=== PATIENT | male | born 1940 | race Caucasian/White ===

== ENCOUNTER → 2020-05-20 | Outpatient (CLI) | payer MEDICARE, OTHER ==
[~2020-05-20] MED LIST: ASPIRIN81 M3 PO; FISH OIL/OMEGA 3 PO; HYDROCODONE/APAP; HYDROCODONE/APAP PO; IOPAMIDOL 370 MG/ML 200 ML INFUS..BTL INJ ONE; SAW PALMETTO PO; SLOW MAG PO; SODIUM CHLORIDE 0.9% 250ML 250 ML ONE; VIT B12 PO; VIT D3 PO; Z.0.CRESTOR10 MG PO; Z.0.LORAZEPAM1 MG PO; Z.0.ZOLPIDEM TARTRA1 PO; [UNRECOGNIZED DRUG - OTHER] PO; [UNRECOGNIZED DRUG - OTHER] PO; [UNRECOGNIZED DRUG - OTHER] PO
[2020-05-20 16:42] LABS: BLOOD UREA NITROGEN 10 mg/dL (7-26); BUN/CREATININE RATIO 13 (6-25); EST GLOMERULAR FILTRATION RATE > 60 ML/MIN (60-)
== END ==
LOC: CT 15:13
PROVIDERS: ATTEND Urology
DX: R31.0 Gross hematuria (principal)
CPT/HCPCS: 36415; 74178; 82565; 84520; J7050; Q9967

== ENCOUNTER → 2024-05-11 | Day surgery (SDC) | payer MEDICARE, OTHER ==
[~2024-05-11] MED LIST changes: +ACETAMINOPHEN 1000 MG/100 ML 100 ML IV ONE; +ACETAMINOPHEN 1000 MG/100 ML IV PRN; +ASPIRIN 325 MG TAB PO SCH; +CELECOXIB 100 MG CAP PO SCH; +CYMBALTA30 MG; +DIPHENHYDRAMINE HCL INJ 50 MG/ML VIAL IV PRN; +DOCUSATE SODIUM 100 MG CAP PO PRN; +EPHEDRINE SULFATE INJ 50 MG/ML VIAL ONE; +FAMOTIDINE 20 MG/2 ML VIAL IV ONE; +FENTANYL CITRATE/PF 100MCG/2 ML INJ ONE; +GLYCOPYRROLATE INJ 0.2 MG/ML VIAL ONE; +HYDROCODON-ACE1 EA10 PO; +HYDROCODONE/APAP 5MG-325MG TAB PO PRN; -IOPAMIDOL 370 MG/ML 200 ML INFUS..BTL INJ ONE; +KETAMINE 50MG/5ML SYR ONE; +LIDOCAINE HCL 2% LOCAL INJ 5 ML SDV VIAL INJ ONE; +LOSARTAN POTASS25 MG PO; +LYRICA50 MG PO; +MELATONIN3 MG PO; +MIDAZOLAM HCL 2 MG/2 ML VIAL ONE; +PROPOFOL IV EMULSION 10 MG/ML 20 ML VIAL ONE; +ROPIVACAINE/EPI/CLONIDINE/KET 50 ML SYRINGE INJ ONE; +SODIUM CHLORIDE 0.9% 1000ML 1,000 ML IV SCH; -SODIUM CHLORIDE 0.9% 250ML 250 ML ONE; +TIZANIDINE HCL4 M1 PO
[2024-05-11] MEDS: CELECOXIB 200 MG CAP ONE (08:11)
[2024-05-11] MEDS: CEFAZOLIN SODIUM 2 GM ONE (08:11)
[2024-05-11] MEDS: DEXAMETHASONE SOD PHOS 10 MG/1 ML VIAL ONE (08:11)
[2024-05-11] MEDS: GABAPENTIN 300 MG CAP ONE (08:11)
[2024-05-11] MEDS: LACTATED RINGER'S 1,000 ML ONE (08:12)
[2024-05-11 11:25] VITALS: TEMP 98.2
[2024-05-11] MEDS: FENTANYL CITRATE/PF 100MCG/2 ML INJ ONE (11:59)
[2024-05-11] MEDS: ONDANSETRON HCL INJ 2MG/ML 2ML 2 MG/ML VIAL IV PRN (12:06)
[2024-05-11] MEDS: HYDROCODONE/APAP 7.5MG-325MG 1 EA TAB PO PRN (12:35)
[2024-05-11 14:10] VITALS: BP 138/73; PULSE 79; RESP 16; O2SAT 95
== END | disposition home health service (06) ==
LOC: OR 06:24
PROVIDERS: ATTEND Specialist
DX: M16.11 Unilateral primary osteoarthritis, right hip (principal); M47.816 Spondylosis without myelopathy or radiculopathy, lumbar region; I10 Essential (primary) hypertension; G89.29 Other chronic pain; F41.9 Anxiety disorder, unspecified; F32.A Depression, unspecified; Z01.812 Encounter for preprocedural laboratory examination; Z01.818 Encounter for other preprocedural examination; Z79.82 Long term (current) use of aspirin; Z79.899 Other long term (current) drug therapy
CPT/HCPCS: 27130; 71046; 72170; 86850; 86900; 97110; 97116; 97161; 97530; C1713; C1776; J0131; J1100; J2003; J2704; J3010; J7121; J2250